=== PATIENT | female | born 1970 | race Caucasian/White ===

== ENCOUNTER → 2016-08-29 | Outpatient (CLI) | payer OTHER | LOC: FIMAGING 07:34 | DX: Z12.31 Encounter for screening mammogram for malignant neoplasm of breast (principal) | CPT/HCPCS: G0202 ==

== ENCOUNTER 2016-08-31 21:16 | Emergency (ER) | payer OTHER ==
--- NOTE | 2016-08-31 21:45 | EDPHY ---
H & P Stated Complaint: manic episode Source: Patient Exam Limitations: No limitations - Personal History LMP (Females 10-55): Now Current Tetanus Diphtheria and Acellular Pertussis (TDAP): Yes Tetanus Vaccine Date: 2008 - Medical/Surgical History Hx Asthma: No Hx Chronic Respiratory Disease: No Hx Diabetes: No Hx Cardiac Disease: No Hx Renal Disease: No Hx Cirrhosis: No Hx Alcoholism: No Hx HIV/AIDS: No Hx Splenectomy or Spleen Trauma: No Other PMH: bipolar, graves disease, meloma, micro-discection, thyroidectomy - Family History Significant Family History: No pertinent family hx - Social History Smoking Status: Never smoked Alcohol Use: Sober Drug Use: None Time Seen by Provider: 08/31/16 21:36 HPI/ROS: CHIEF COMPLAINT: Bipolar HISTORY OF PRESENT ILLNESS: Patient is a 45 year healthy female with a history of bipolar who comes to the emergency department stating that she is anxious and extremely manic. She states that she has seen her therapist Dr. Plaza yesterday who prescribed her Valium. She took a dose this morning that seemed to help but she took it this afternoon and that did not do anything. She states that Pedro has worked well for her in the past but she is not currently on it. She is currently on lithium & Synthroid. She has had a lot of stress in her life recently and thinks that this has triggered a manic episode. She is not suicidal or homicidal. No recent drug or alcohol use. She is requesting to be admitted before she does something "stupid" like break up with her fiance. REVIEW OF SYSTEMS: Constitutional: denies: chills, fever, recent illness, recent injury EENTM: denies: blurred vision, double vision, nose congestion Respiratory: denies: cough, shortness of breath Cardiac: denies: chest pain, irregular heart rate, lightheadedness, palpitations Gastrointestinal/Abdominal: denies: abdominal pain, diarrhea, nausea, vomiting, blood streaked stools Genitourinary: denies: dysuria, frequency, hematuria, pain Musculoskeletal: denies: joint pain, muscle pain Skin: denies: lesions, rash, jaundice, bruising Neurological: denies: headache, numbness, paresthesia, tingling, dizziness, weakness Hematologic/Lymphatic: denies: blood clots, easy bleeding, easy bruising Immunologic/allergic: denies: HIV/AIDS, transplant EXAM: GENERAL: Well-appearing, well-nourished and in no acute distress. HEAD: Atraumatic, normocephalic. EYES: Pupils equal round and reactive to light, extraocular movements intact, sclera anicteric, conjunctiva are normal. ENT: TMs normal, nares patent, oropharynx clear without exudates. Moist mucous membranes. NECK: Normal range of motion, supple without lymphadenopathy or JVD. LUNGS: Breath sounds clear to auscultation bilaterally and equal. No wheezes rales or rhonchi. HEART: Regular rate and rhythm without murmurs, rubs or gallops. ABDOMEN: Soft, nontender, normoactive bowel sounds. No guarding, no rebound. No masses appreciated. BACK: No CVA tenderness, no spinal tenderness, step-offs or deformities EXTREMITIES: Normal range of motion, no pitting or edema. No clubbing or cyanosis. NEUROLOGICAL: Cranial nerves II through XII grossly intact. Normal speech, normal gait. 5/5 strength, normal movement in all extremities, normal sensation PSYCH: Rapid speaking, animated SKIN: Warm, dry, normal turgor, no visible rashes or lesions. (Kuldeep Oakes) Constitutional: Initial Vital Signs Temperature (C) 37.1 C 08/31/16 21:23 Heart Rate 105 H 08/31/16 21:23 Respiratory Rate 20 08/31/16 21:23 Blood Pressure 152/93 H 08/31/16 21:23 O2 Delivery Mode Room Air Allergies/Adverse Reactions: chlorpromazine HCl [From Thorazine] Allergy (Verified 08/31/16 21:22) cortisone Allergy (Verified 08/28/16 16:11) diphenhydramine HCl [From Benadryl] Allergy (Verified 08/28/16 16:11) haloperidol [From Haldol] Allergy (Verified 08/31/16 21:22) haloperidol lactate [From Haldol] Allergy (Verified 08/31/16 21:22) olanzapine [From Zyprexa] Allergy (Verified 08/31/16 21:23) GABBAGE Allergy (Uncoded 08/28/16 16:12) STEROIDS Allergy (Uncoded 08/28/16 16:12) Home Medications: Medication Instructions Recorded Diazepam [Valium 10 MG (*)] 10 mg PO BID PRN 08/28/16 Herbals/Supplements -Info Only 1 ea PO DAILY 08/28/16 Levothyroxine [Synthroid 100 mcg 100 mcg PO DAILY06 08/28/16 (*)] Liothyronine Sodium [Cytomel 25 12.5 mcg PO DAILY 08/28/16 mcg (*)] Silver Peak Carbonate [Silver Peak 300 mg PO BID 08/28/16 Carbonate Cap 300 mg (*)] Multivitamins [Multivitamin (*)] 1 each PO DAILY 08/28/16 Lincoln-3 Fatty Acids/Fish Oil [Fish 1 each PO DAILY 08/28/16 Oil 1,000 mg Capsule] Zolpidem Tartrate [Ambien 10 mg] 10 mg PO HS PRN 08/28/16 Ziprasidone HCl [Geodon 40MG (*)] 40 mg PO BID #10 cap 09/01/16 Medical Decision Making ED Course/Re-evaluation: 3:00 a.m.- The patient was seen by the mental health worker. We have decided that she is suitable for outpatient management. I will write her for a short course of Geodon. She will follow up tomorrow with the mental health nurse. She has information for this. (Candi Camacho) Patient has calmed down with Geodon and Ativan. She is awaiting mental health consultation. I suspect she will be eligible for discharge and outpatient follow-up. Care transferred to at 11:00 p.m.. (Kuldeep Oakes) Differential Diagnosis: Partial list of the Differential diagnosis considered include but were not limited to; bipolar, anxiety, stress reaction and although unlikely based on the history and physical exam, I also considered psychosis, infection, head injury. (Kuldeep Oakes) - Data Points Laboratory Results: Laboratory Results 09/01/16 00:10 09/01/16 00:10 Medications Given: Discontinued Medications Lorazepam (Ativan) 2 mg PO EDNOW ONE Stop: 08/31/16 22:10 Last Admin: 08/31/16 22:17 Dose: 2 mg Ziprasidone (Geodon) 40 mg PO BIDMEAL CHARLIE Stop: 02/28/17 07:59 Last Admin: 08/31/16 22:18 Dose: 40 mg Departure - Departure Disposition: Home, Routine, Self-Care Clinical Impression: Bipolar 1 disorder, manic, moderate Condition: Good Instructions: Bipolar Disorder (ED) Referrals: [facility] [Outside] - As per Instructions Prescriptions: Ziprasidone HCl [Geodon 40MG (*)] 40 mg PO BID #10 cap
[2016-08-31] MEDS ORDERED: LORazepam 1 MG TAB PO ONE (22:09)
[2016-08-31] MEDS ORDERED: LORazepam 1 MG TAB ONE (22:10)
[2016-09-01 00:20] LABS: % IMMATURE GRANULYOCYTES 0.4 % (0.0-1.1); ABSOLUTE IMMATURE GRANULOCYTES 0.04 10^3/uL (0.00-0.10); ADD DIFF? NO; ADD MORPH? NO; ADD SCAN? NO; ATYPICAL LYMPHOCYTE FLAG 10 (0-99); FRAGMENT RBC FLAG 0 (0-99); HEMATOCRIT 41.9 % (38.0-47.0); HEMOGLOBIN 13.8 g/dL (12.6-16.3); LEFT SHIFT FLG 0 (0-99); LIPEMIA HEMOLYSIS FLAG 80 (0-99); MEAN CELL HEMOGLOBIN 30.8 pg (27.9-34.1); MEAN CELL HEMOGLOBIN CONCENTR. 32.9 g/dL (32.4-36.7); MEAN CELL VOLUME 93.5 fL (81.5-99.8); MEAN PLATELET VOLUME 9.2 fL (8.7-11.7); PLATELET CLUMPS FLAG 0 (0-99); PLATELET COUNT 274 10^3/uL (150-400); RED BLOOD CELL COUNT 4.48 10^6/uL (4.18-5.33)
[2016-09-01 00:48] LABS: ANION GAP 12 mEq/L (8-16); CALCIUM 9.9 mg/dL (8.5-10.4); CARBON DIOXIDE 24 mEq/l (22-31); CHLORIDE 104 mEq/L (97-110); CREATININE 0.7 mg/dL (0.6-1.0); ETHANOL SERUM < 10 mg/dL (0-10); GLOMERULAR FILTRATION RATE > 60; GLUCOSE 97 mg/dL (70-100); POTASSIUM 4.1 mEq/L (3.5-5.2); SODIUM 140 mEq/L (134-144)
[2016-09-01 01:00] LABS: LITHIUM 0.3 mEq/L (0.6-1.2)
[2016-09-01 03:36] VITALS: BP 144/87; PULSE 84; RESP 16; TEMP 98.6; O2SAT 97
[2016-09-01] MEDS ORDERED: ZIPRASIDONE HCL 40 MG CAP PO SCH (08:00)
== END 2016-09-01 03:38 | disposition home or self-care (01) ==
LOC: EEVIPCON 21:16
DX: F31.12 Bipolar disorder, current episode manic without psychotic features, moderate (principal)
CPT/HCPCS: 80305; G0480

== ENCOUNTER 2016-09-17 06:01 | Observation (INO) | payer OTHER ==
--- NOTE | 2016-09-05 14:52 | GHP ---
PLANNED PROCEDURE: Total laparoscopic hysterectomy with bilateral salpingectomy. INDICATIONS: Menorrhagia. HISTORY OF PRESENT ILLNESS: Patient is a 45-year-old, 4, para 1-0-3-1, who has had progress ively worsening periods over the last year and a half. Patient states her periods are monthly, she bleeds 5 to 7 days. The 1st day is okay and day 2 to 3 she has heavy clots. She has to sleep on to wels and she goes through super plus tampons every hour, plus pads, for 2 days. Day 4 and 5 are lig hter. The patient has a history of bipolar disorder, and does not do well on hormones, and is not i nterested in any medical management. Her family status is complete so she would like to have defini tive therapy with a hysterectomy. Risks and benefits of the procedure extensively reviewed with the patient. We had an extensive disc ussion about options of total laparoscopic hysterectomy versus total abdominal hysterectomy. We guillermo l start with a total laparoscopic hysterectomy, and patient is aware we might need to convert to abd ominal hysterectomy if any issues arise. MEDICAL HISTORY: Significant for hypothyroidism secondary to thyroid ablation for Grave disease, bi polar disorder, history of melanoma, cervical dysplasia, menorrhagia. MEDICATIONS: [place] 3 mg b.i.d., Valium 10 mg p.r.n., Ativan p.r.n., Geodon, Ambien p.r.n., levoth yroxine 100 mcg a day, Cytomel 12.5 mcg a day and omega-3. SURGICAL HISTORY: LEEP excision of her cervix versus possible cryosurgery, patient is not certain, primary low transverse section, back surgery, microdiskectomy of L4, L5, and S1, excision o f melanoma, thyroid ablation with iodine. ALLERGIES: No known drug allergies. SOCIAL HISTORY: The patient is engaged. She does not smoke or use drugs. She does drink 3 alcohol ic beverages a week. FAMILY HISTORY: Noncontributory. MEDIA CLERK HISTORY: Menarche age 13, monthly, lasting 5 to 7 days, they are very heavy, and she has lot s of clots and cramps. She is a 4, para 1-0-3-1. She had a primary low transverse section for breech presentation and 3 spontaneous abortions. Patient does have a history of cervic al dysplasia and has had a LEEP excision versus cryosurgery in 1997. Repeat Paps have all been nega tive. PHYSICAL EXAM: VITAL SIGNS: Patient's vital signs are stable. GENERAL APPEARANCE: Alert and orie nted x3. HEART: Regularly regular. LUNGS: Clear to auscultation bilaterally. ABDOMEN: Soft, ob karlie, nondistended, nontender. EXTREMITIES: Reveal no calf tenderness or edema. PELVIC: Reveals a mobile midposition uterus with no adnexal masses. Pelvic ultrasound shows the uterus measuring 8.1 2 x 5.37 x 4.5 cm with an endometrial thickness of 1 cm. Ovaries are unremarkable. ASSESSMENT AND PLAN: A 45-year-old 4, para 1-0-3-1, who has a history of menorrhagia and is not a candidate for medical therapy due to interactions with her bipolar disorder. The patient guillermo l undergo a total laparoscopic hysterectomy with bilateral salpingectomy. Risks and benefits have b eeartur extensively reviewed with the patient, including risks of bleeding, infection, damage to the bow el, bladder, or major blood vessels, risk of poking a hole in her bladder, which is increased becaus e of her history of her previous section, and need to convert to an open hysterectomy has b eeartur discussed extensively. /[id number]/MODL
[~2016-09-17 06:01] MED LIST: ceFAZolin 2 GM/DEXTROSE 100 ML IV ONE
[2016-09-17] MEDS ORDERED: DEXAMETHASONE 4 MG/ML VIAL ONE (06:40)
[2016-09-17] MEDS ORDERED: NEOSTIGMINE METHYLSULFATE 5 MG/5 ML SYR ONE (06:40)
[2016-09-17] MEDS ORDERED: ONDANSETRON 4 MG/2 ML VIAL ONE (06:40)
[2016-09-17] MEDS ORDERED: GLYCOPYRROLATE 0.2 MG/1 ML VIAL ONE (06:40)
[2016-09-17] MEDS ORDERED: ROCURONIUM 50 MG/5 ML VIAL ONE ×3 (06:40→07:37)
[2016-09-17] MEDS ORDERED: HYDROmorphONE/DILAUDID 2 MG/ML INJ ONE (06:40)
[2016-09-17] MEDS ORDERED: PROPOFOL/EMULSION 500 MG/50 ML BOTTLE IV ONE ×2 (06:41→07:42)
[2016-09-17] MEDS ORDERED: MIDAZOLAM 2 MG/2 ML VIAL ONE (06:41)
[2016-09-17] MEDS ORDERED: PROPOFOL 200 MG/20 ML VIAL ONE (06:41)
[2016-09-17] MEDS ORDERED: METOCLOPRAMIDE 10 MG/2 ML VIAL ONE (06:43)
[2016-09-17] MEDS ORDERED: LIDOCAINE 1% 5 ML SDV ID PRN (06:44)
[2016-09-17] MEDS ORDERED: LR 1,000 ML IV ONE (06:44)
[2016-09-17] MEDS ORDERED: SILVER NITRATE APPLICATOR 1 APPL TP ONE ×2 (06:47→06:50)
[2016-09-17] MEDS ORDERED: BUPIVACAINE/EPI 0.5% 30 ML SDV ONE (06:47)
[2016-09-17] MEDS ORDERED: LIDOCAINE 2% 100 MG/5 ML SYR IVP ONE (06:48)
[2016-09-17] MEDS ORDERED: ESMOLOL HCL 100 MG/10 ML VIAL IV ONE (07:39)
[2016-09-17] MEDS ORDERED: fentaNYL 250 MCG/5 ML INJ ONE (07:43)
[2016-09-17] MEDS ORDERED: KETOROLAC 30 MG/1 ML SDV ONE (09:19)
[2016-09-17] MEDS ORDERED: ACETAMINOPHEN 325 MG TAB PO PRN (09:46)
[2016-09-17] MEDS ORDERED: IBUPROFEN 200 MG TAB PO PRN (09:46)
[2016-09-17] MEDS ORDERED: HYDROmorphONE/DILAUDID 1 MG/ML SYR IVP PRN (09:46)
[2016-09-17] MEDS ORDERED: LORazepam 1 MG TAB PO PRN (09:52)
--- NOTE | 2016-09-17 09:57 | POSTOPPROG ---
Post Op Note Date of Operation: 09/17/16 Surgeon: Cecily Younger Chicken Hanger: jaclyn smith Anesthesia: GET(General Endotracheal) Pre-op Diagnosis: menorrhagia Post-op Diagnosis: same Procedure: total laparoscopic hysterectomy with bilateral salpingectomy Inf/Abcess present in the surg proc area at time of surgery?: No EBL: 50-100 Complications: none Specimen(s): uterus and tubes
[2016-09-17] MEDS ORDERED: LR 1,000 ML IV SCH (10:00)
--- NOTE | 2016-09-17 11:20 | GOP ---
DATE OF OPERATION: 09/17/2016 SURGEON: Cecily Younger DO CALCULUS PROFESSOR: Lucie Hollins MD ANESTHESIA: General endotracheal tube. PREOPERATIVE DIAGNOSIS: Menorrhagia. POSTOPERATIVE DIAGNOSIS: Menorrhagia. PROCEDURE PERFORMED: Total laparoscopic hysterectomy with bilateral salpingectomy. FINDINGS: 1. Exam under anesthesia: Mobile, slightly enlarged uterus with no adnexal masses. 2. Laparoscopic findings: Adhesions of the bladder to the lower uterine segment and otherwise unremarkable uterus. Normal right ovaries and tubes. Left ovary had a simple ovarian cyst which ruptured intraoperatively. ESTIMATED BLOOD LOSS: 50 cc. INDICATIONS: Patient is a 45-year-old, 4, para 1-0-3-1, who has a history of progressively worsening periods over the last year and a half. The patient states her periods are monthly. She bleeds 5-7 days. The first day is okay; the 2nd and 3rd day she passes heavy clots and has significant cramps and has to sleep on towels. She goes through a super plus tampon every hour plus pads for 2 days on day 4 and 5 or later. We have discussed management options with the patient. She is requesting definitive therapy with a total laparoscopic hysterectomy. Risks and benefits of the procedure were reviewed extensively with the patient. The patient was properly consented. DESCRIPTION OF PROCEDURE: Patient was taken to the operating room with intravenous fluids in place. She was given Ancef intravenously. She was then placed on the operating room table in the dorsal supine position where general anesthesia was obtained. She was then repositioned into the dorsal lithotomy position with the Yellofin stirrups and prepped and draped in the normal sterile fashion. Exam under anesthesia revealed a mobile mid position, slightly enlarged uterus with no adnexal masses. The speculum was then placed in the patient's vagina. A single-tooth tenaculum was used to grasp the anterior lip of the cervix, and the cervix sounded to 10 cm. The cervix was then dilated to a 7-Albanian. The green tip MARCELLO with a large cup was then assembled and inserted without difficulty. This manipulated the uterus. A 5 mm skin incision was then made in the umbilicus after being injected with Marcaine. The 5 mm laparoscope was advanced into the patient's abdomen under direct visualization with the Optiview. The abdomen was then insufflated with CO2 gas until an adequate pneumoperitoneum was achieved. The area underneath the trocar insertion site was explored and unremarkable. A 10 mm skin incision was then made in the patient's left lower quadrant and a trocar was then advanced into the abdomen under direct visualization, and a 5 mm trocar was then advanced into the patient's abdomen under direct visualization after a 5 mm skin incision was made. The patient was then placed in Trendelenburg position and the abdomen and pelvis were explored. There was a left simple cyst on her left ovary which ruptured with manipulation of the uterus. Prior to us removing the fallopian tubes at the beginning of the surgery, the ureters were identified bilaterally and noted to be peristalsing and well away from the surgical site. The right fallopian tube was then dissected off the mesosalpinx and withdrawn through the 10 mm trocar. The right round ligament was clamped, cauterized, and transected with the LigaSure, and the anterior and posterior segment of the broad ligament was then dissected down. The right uterine artery was then skeletonized, clamped, cauterized, and transected. The bladder was noted to be adherent to the lower uterine segment. This was carefully dissected down off the lower uterine segment. The colpotomy cup was clearly visualized. Attention was then turned to the patient's left side. The left fallopian tube was then elevated and transected from the mesosalpinx and withdrawn through the 10 mm port. The left round ligament and utero-ovarian ligament were clamped, cauterized, and transected. The anterior and posterior leaflets were then clamped, cauterized and transected, and the left uterine arteries were then clamped, cauterized, and transected. After the bladder was ensured to be well away from the colpotomy site, a Harmonic Scalpel was then used to perform the colpotomy. This was done without difficulty with excellent visualization throughout the entire time. Following completion of the colpotomy, the uterus was then withdrawn into the vagina and a sponge on a stick was then placed in the patient's vagina to assist with pneumo occlusion. Hemostasis of the vaginal cuff was noted. The V-Loc suture was then inserted through the 10 mm trocar site and the vaginal cuff was closed in a running fashion with the V- Loc. Bilateral angles and uterosacral ligaments were incorporated into the V- Loc suture. Hemostasis was assured following completion of the closure of the vaginal cuff. The abdomen and pelvis were copiously irrigated and the pedicles were evaluated, and the vaginal cuff was found to be hemostatic. Bilateral ureteral peristalsis was noted. The upper abdomen was explored and unremarkable. The area of the appendix was visualized and unremarkable. The 10 mm trocar was then removed from the patient's abdomen and the fascial closure device was then inserted. The fascia was closed with an 0 Vicryl stitch under direct visualization. The CO2 gas was then expressed from the patient's abdomen, and the remaining trocars were removed from the patient's abdomen. The skin was then closed with 4-0 Monocryl in a subcuticular fashion. Hemostasis was assured on the abdominal incisions. A sponge on a stick was then placed in the patient's vagina gently and a speculum exam was performed and no vaginal bleeding was noted. The patient was then returned to the dorsal supine position where she was easily awoken from anesthesia. Sponge, lap, needle counts were correct x2. The patient was transported to the recovery room in stable condition. /[id number]/MODL MTDD
[2016-09-17] MEDS: KETOROLAC 30 MG/1 ML SDV IVP SCH ×2 (12:58→19:24)
[2016-09-17] MEDS: HYDROCODONE/APAP 5/325 TAB PO PRN ×3 (12:59→20:51)
[2016-09-17] MEDS: LITHIUM CARBONATE 300 MG CAP PO SCH ×2 (13:12→20:42)
--- NOTE | 2016-09-17 17:28 | SOAPPROG ---
SOAP Progress Note Assessment/Plan: Assessment: pod#0 s/p TLH BS for menorrhagia uncomplicated post operative course bipolar disorder - currently in manic phase Plan: routine post operative care 09/17/16 17:24 Subjective: patient is doing well. ellison was removed earlier today. ambulating. passing gas. voiding without difficulty. pain is well controlled. tolerating diet. long discussion about discharge plan. per patient her insurance said she could stay as long as she wants to. and she wants to stay for a while because of the tory. Denies thoughts of hurting herself. discussed that if she is having mental health issues we can arrange a follow up plan with her psychiatrist but med/surg, mom/baby floor is not an appropriate place for terminal supervisor management of mood. Also doesnt want to go home because her fiance is busy. discussed that we will discussed plan tomorrow. patient to continue to ambulate. Objective: Vital Signs Temp Pulse Resp BP Pulse Ox 36.6 C 71 16 142/89 H 96 09/17/16 14:03 09/17/16 14:03 09/17/16 14:03 09/17/16 14:03 09/17/16 14:03 09/16/16 09/17/16 09/18/16 05:59 05:59 05:59 Intake Total 1350 Output Total 275 Balance 1075 Physical Exam - Physical Exam General Appearance: WD/WN, alert, no apparent distress Respiratory: chest non-tender, lungs clear Cardiac/Chest: normal peripheral pulses, regular rate, rhythm Abdomen: normal bowel sounds, non-tender, soft Skin: normal color, warm/dry, other (incisions covered) Extremities: normal range of motion, non-tender, normal inspection, normal capillary refill Neuro/Psych: no motor/sensory deficits, alert, normal mood/affect (slightly manic), oriented x 3 ICD10 Worksheet Patient Problems: Problems Problem Status Onset Menorrhagia Acute Status post laparoscopic hysterectomy Acute Bipolar disorder Active Hypothyroidism Active Low back pain Active
[2016-09-17] MEDS ORDERED: ZIPRASIDONE HCL 40 MG CAP PO SCH (21:00)
[2016-09-18] MEDS: KETOROLAC 30 MG/1 ML SDV IVP SCH ×3 (01:07→15:55)
[2016-09-18] MEDS: HYDROCODONE/APAP 5/325 TAB PO PRN ×2 (01:08→08:18)
[2016-09-18] MEDS ORDERED: LEVOTHYROXINE 112 MCG TAB PO SCH (06:00)
[2016-09-18 06:41] VITALS: RESP 18
[2016-09-18] MEDS: LIOTHYRONINE SODIUM 25 MCG TAB PO SCH ×2 (06:49→08:51)
[2016-09-18] MEDS: LITHIUM CARBONATE 300 MG CAP PO SCH (08:05)
--- NOTE | 2016-09-18 09:47 | SOAPPROG ---
SOAP Progress Note Assessment/Plan: Assessment: pod#1 s/p TLH BS for menorrhagia uncomplicated post operative course bipolar disorder - currently in manic phase Plan: routine post operative care discharge plan reviewed check tsh per patient request 09/18/16 09:43 Subjective: patient is doing well. pain is well controlled. denies vaginal bleeding. ambulating. passing gas. voiding without difficulty. tolerating regular diet. long discussion with patient about discharge plans. from a surgical perspective patient is fine to go home. patient is very anxious about her thyroid and tory and frustrated with the whole medical field/insurance situation and feels like she should be able to stay in patient until all issues have resolved. I do have patients psychiatrists number. i will call her today to discuss post operative management and options. discussed if patient needs in patient psych we can faciliate that. patient doesnt think she does but just feels overwhelmed. denies thoughts of hurting herself or others. just doesnt want to overwhelm her fiance as he is very busy. Objective: Vital Signs Temp Pulse Resp BP Pulse Ox 36.6 C 80 18 108/67 94 09/18/16 06:40 09/18/16 06:40 09/18/16 06:40 09/18/16 06:40 09/18/16 06:40 Laboratory Results 09/18/16 06:55 09/17/16 09/18/16 09/19/16 05:59 05:59 05:59 Intake Total 2150 Output Total 925 Balance 1225 Physical Exam - Physical Exam General Appearance: WD/WN, alert, no apparent distress Respiratory: chest non-tender, lungs clear, normal breath sounds Cardiac/Chest: normal peripheral pulses, regular rate, rhythm Abdomen: normal bowel sounds, non-tender, soft Skin: normal color, warm/dry, other (incisions covered ) Extremities: normal range of motion, non-tender, normal inspection, normal capillary refill Neuro/Psych: no motor/sensory deficits, alert, normal mood/affect, oriented x 3 ICD10 Worksheet Patient Problems: Problems Problem Status Onset Menorrhagia Acute Status post laparoscopic hysterectomy Acute Bipolar disorder Active Hypothyroidism Active Low back pain Active
[2016-09-18 10:40] VITALS: BP 108/73; PULSE 65; TEMP 98.1; O2SAT 96
[2016-09-18] MEDS ORDERED: LITHIUM CARBONATE 300 MG TAB PO ONE ×2 (15:20→16:00)
== END 2016-09-18 18:10 | disposition home or self-care (01) ==
LOC: F3E 06:01 → FOB 11:04
PROVIDERS: ADMIT Obstetrics & Gynecology; ATTEND Obstetrics & Gynecology
DX: N92.0 Excessive and frequent menstruation with regular cycle (principal); F31.10 Bipolar disorder, current episode manic without psychotic features, unspecified; E03.1 Congenital hypothyroidism without goiter; E89.0 Postprocedural hypothyroidism
CPT/HCPCS: 58571; G0378; J0690; J1100; J1170; J1885; J2001; J2250; J2405; J2704; J2710; J2765; J3010

== ENCOUNTER 2018-04-12 00:25 | Emergency (ER) | payer BC, MEDICAID ==
--- NOTE | 2018-04-12 00:32 | EDPHY ---
H & P Time Seen by Provider: 04/12/18 00:32 HPI/ROS: HPI CHIEF COMPLAINT: Back pain HISTORY OF PRESENT ILLNESS: 47-year-old female, history of bipolar disorder, presents emergency room with right gluteal pain. Sharp stabbing pain that shoots down to her ankle. She has been suffering from this pain for few weeks however last 48 hr it got worse. Denies any fever. Denies saddle anesthesia. Denies bowel or bladder incontinence or retention. Denies abdominal pain. She has had sciatica type symptoms in the past. She did have a micro diskectomy. Past Medical History: Bipolar disorder, history of sciatica Past Surgical History: Micro diskectomy. Social History: Denies drugs alcohol tobacco. Family History: Noncontributory ROS REVIEW OF SYSTEMS: 10 Systems were reviewed and negative with the exception of the elements mentioned in the history of present illness. Exam Constitutional nontoxic, no acute distress, triage nursing summary reviewed, vital signs reviewed, awake/alert. Eyes normal conjunctivae and sclera, EOMI, PERRLA. HENT normal inspection, atraumatic, moist mucus membranes, no epistaxis, neck supple/ no meningismus, no raccoon eyes. Respiratory clear to auscultation bilaterally, normal breath sounds, no respiratory distress, no wheezing. Cardiovascular rate normal, regular rhythm, no murmur, no edema, distal pulses normal. Gastrointestinal soft, non-tender, no rebound, no guarding, normal bowel sounds, no distension, no pulsatile mass. Genitourinary no CVA tenderness. Musculoskeletal no midline vertebral tenderness, full range of motion, no calf swelling, no tenderness of extremities, no meningismus, good pulses, neurovascularly intact. Right leg neurovascular intact good distal pulse, good cap refill, normal gait. Able to lift her leg off the bed fine. No leg weakness. No saddle anesthesia. No midline lumbar spine pain. Skin pink, warm, & dry, no rash, skin atraumatic. Neurologic awake, alert and oriented x 3, AAOx3, moves all 4 extremities equally, motor intact, sensory intact, CN II-XII intact, normal cerebellar, normal vision, normal speech. Psychiatric normal mood/affect. Heme/Lymph/Immune no lymphadenopathy. Differential Diagnosis: Includes but is not limited to in a particular order: Sciatica, nerve root compression, annular tear, disc herniation, compression fracture, no evidence of cauda equina on exam, Medical Decision Making: Plan for this patient IV establishment basic blood draw, UA, lumbar spine x-ray, IV Dilaudid for pain control, IV Toradol for pain control. Re-evaluate. Patient declined steroids here. Has multiple medication allergies. Re-evaluation: 0416: Patient received 0.5 IV Dilaudid initially with good pain relief. Her pain returned and she received 1 mg of Dilaudid. Since then she has been doing very well. She ambulated well to the bathroom her back pain is well controlled. She has no red flags no fever, no midline pain, no saddle anesthesia or leg weakness. At times the pain radiates down her right gluteus to right ankle consistent with sciatica. She declined steroids here. She declined [place] for home. She rather her Percocet which I provided for her. I do distally recommend she ice her back, takes ibuprofen, follows up with her primary care doctor versus neurosurgeon. She understands this. Additionally return precautions discussed. She feels comfortable going home. I did discuss with her about observation and admission overnight for pain control however she has declined this and feels comfortable going home. Source: Patient - Personal History Tetanus Vaccine Date: 2008 - Medical/Surgical History Hx Asthma: No Hx Chronic Respiratory Disease: No Hx Diabetes: No Hx Cardiac Disease: No Hx Renal Disease: No Hx Cirrhosis: No Hx Alcoholism: No Hx HIV/AIDS: No Hx Splenectomy or Spleen Trauma: No Other PMH: bipolar, graves disease, meloma, micro-discection, thyroidectomy - Social History Smoking Status: Never smoked Constitutional: Initial Vital Signs Temperature (C) 36.6 C 04/12/18 00:31 Heart Rate 108 H 04/12/18 00:31 Respiratory Rate 20 04/12/18 00:31 Blood Pressure 139/92 H 04/12/18 00:31 O2 Sat (%) 94 04/12/18 00:31 O2 Delivery Mode Room Air Allergies/Adverse Reactions: chlorpromazine HCl [From Thorazine] Allergy (Verified 04/12/18 00:30) cortisone Allergy (Verified 04/12/18 00:30) diphenhydramine HCl [From Benadryl] Allergy (Verified 04/12/18 00:30) haloperidol [From Haldol] Allergy (Verified 04/12/18 00:30) haloperidol lactate [From Haldol] Allergy (Verified 04/12/18 00:30) olanzapine [From Zyprexa] Allergy (Verified 04/12/18 00:30) GABBAGE Allergy (Uncoded 04/12/18 00:30) STEROIDS Allergy (Uncoded 04/12/18 00:30) Home Medications: Medication Instructions Recorded Herbals/Supplements -Info Only 1 ea PO DAILY 08/28/16 Liothyronine Sodium [Cytomel 25 12.5 mcg PO DAILY 08/28/16 mcg (*)] [place] Carbonate [[place] 300 mg PO BID 08/28/16 Carbonate Cap 300 mg (*)] Multivitamins [Multivitamin (*)] 1 each PO DAILY 08/28/16 [place]-3 Fatty Acids/Fish Oil [Fish 1 each PO DAILY 08/28/16 Oil 1,000 mg Capsule] Zolpidem Tartrate [Ambien 10 mg] 10 mg PO HS PRN 08/28/16 LORazepam [Ativan (*)] 1 mg PO DAILY PRN 09/16/16 Levothyroxine Sodium 112 mcg PO DAILY06 09/16/16 Hydrocodone/APAP 5/325 [[place] 1 - 2 tab PO Q4HRS PRN #30 tab 09/18/16 5/325 (*)] Ibuprofen [Motrin (*)] 600 mg PO Q6 PRN #0 tab 09/18/16 Hydrocodone/APAP 5/325 [[place] 1 - 2 tab PO Q4H PRN #10 tab 04/12/18 5/325] oxyCODONE/APAP 5/325 [Percocet 1 - 2 tab PO Q6H PRN #10 tab 04/12/18 5/325 (*)] Medical Decision Making - Data Points Laboratory Results: Laboratory Results 04/12/18 01:05 04/12/18 01:05 04/12/18 04/12/18 04/12/18 01:05 01:05 01:05 WBC 8.58 10^3/uL 10^3/uL (3.80-9.50) RBC 4.92 10^6/uL 10^6/uL (4.18-5.33) Hgb 15.3 g/dL g/dL (12.6-16.3) Hct 44.4 % % (38.0-47.0) MCV 90.2 fL fL (81.5-99.8) MCH 31.1 pg pg (27.9-34.1) MCHC 34.5 g/dL g/dL (32.4-36.7) RDW 12.7 % % (11.5-15.2) Plt Count 249 10^3/uL 10^3/uL (150-400) MPV 9.1 fL fL (8.7-11.7) Neut % (Auto) 58.1 % % (39.3-74.2) Lymph % (Auto) 31.6 % % (15.0-45.0) [place] % (Auto) 7.3 % % (4.5-13.0) Eos % (Auto) 2.4 % % (0.6-7.6) Baso % (Auto) 0.3 % % (0.3-1.7) Nucleat RBC Rel Count 0.0 % % (0.0-0.2) Absolute Neuts (auto) 4.97 10^3/uL 10^3/uL (1.70-6.50) Absolute Lymphs (auto) 2.71 10^3/uL 10^3/uL (1.00-3.00) Absolute Monos (auto) 0.63 10^3/uL 10^3/uL (0.30-0.80) Absolute Eos (auto) 0.21 10^3/uL 10^3/uL (0.03-0.40) Absolute Basos (auto) 0.03 10^3/uL 10^3/uL (0.02-0.10) Absolute Nucleated RBC 0.00 10^3/uL 10^3/uL (0-0.01) Immature Gran % 0.3 % % (0.0-1.1) Immature Gran # 0.03 10^3/uL 10^3/uL (0.00-0.10) Sodium 141 mEq/L mEq/L (135-145) Potassium 3.9 mEq/L mEq/L (3.3-5.0) Chloride 108 mEq/L mEq/L (97-110) Carbon Dioxide 24 mEq/l mEq/l (22-31) Anion Gap 9 mEq/L mEq/L (8-16) BUN 16 mg/dL mg/dL (7-23) Creatinine 0.6 mg/dL mg/dL (0.6-1.0) Estimated GFR > 60 Glucose 114 mg/dL H mg/dL (70-100) Calcium 9.4 mg/dL mg/dL (8.5-10.4) Beta HCG, Qual NEGATIVE Medications Given: Discontinued Medications Hydromorphone HCl (Dilaudid) 0.5 mg IVP EDNOW ONE Stop: 04/12/18 01:00 Last Admin: 04/12/18 01:20 Dose: 0.5 mg Hydromorphone HCl (Dilaudid) 1 mg IVP EDNOW ONE Stop: 04/12/18 03:21 Last Admin: 04/12/18 03:24 Dose: 1 mg Sodium Chloride (Ns) 1,000 mls @ 0 mls/hr IV EDNOW ONE; Wide Open PRN Reason: Protocol Stop: 04/12/18 00:59 Last Admin: 04/12/18 01:19 Dose: 1,000 mls Sodium Chloride (Ns) 1,000 mls @ 0 mls/hr IV ONCE ONE PRN Reason: Wide Open Stop: 04/12/18 02:14 Last Admin: 04/12/18 02:15 Dose: 1,000 mls Sodium Chloride (Ns) 1,000 mls @ 0 mls/hr IV EDNOW ONE; Wide Open PRN Reason: Protocol Stop: 04/12/18 02:14 Last Admin: 04/12/18 02:16 Dose: Not Given Ketorolac Tromethamine (Toradol) 15 mg IVP EDNOW ONE Stop: 04/12/18 01:00 Last Admin: 04/12/18 01:18 Dose: 15 mg Departure - Departure Disposition: Home, Routine, Self-Care Clinical Impression: Low back pain Sciatica Qualifiers: Laterality: right Qualified Code(s): M54.31 - Sciatica, right side Condition: Good Instructions: Sciatica (ED), Lumbar Radiculopathy (ED) Additional Instructions: 1. Rest and take it easy. 2. Ice you're back. 3. Follow up with her primary care doctor. Referrals: NONE *PRIMARY CARE P,. [Primary Care Provider] - As per Instructions Roe Rehman MD [Medical Doctor] - As per Instructions Jose Angel Simpson MD [Medical Doctor] - As per Instructions Prescriptions: Hydrocodone/APAP 5/325 [[place] 5/325] 1 - 2 tab PO Q4H PRN #10 tab PRN Reason: Pain, Moderate oxyCODONE/APAP 5/325 [Percocet 5/325 (*)] 1 - 2 tab PO Q6H PRN #10 tab PRN Reason: Pain, Severe
[2018-04-12] MEDS ORDERED: NS 1,000 ML IV ONE ×3 (00:58→02:13)
[2018-04-12] MEDS ORDERED: KETOROLAC 15 MG/1 ML SDV IVP ONE (00:59)
[2018-04-12] MEDS ORDERED: HYDROmorphONE/DILAUDID 2 MG/ML INJ IVP ONE ×2 (00:59→03:20)
[2018-04-12 01:16] LABS: PLATELET COUNT 249 10^3/uL (150-400)
[2018-04-12] MEDS ORDERED: HYDROmorphONE/DILAUDID 1 MG/ML INJ ONE (03:21)
[2018-04-12 03:27] VITALS: BP 115/68
== END 2018-04-12 04:29 | disposition home or self-care (01) ==
DX: M51.16 Intervertebral disc disorders with radiculopathy, lumbar region (principal); E86.9 Volume depletion, unspecified
CPT/HCPCS: 96374; J1170; J1885

== ENCOUNTER 2018-11-18 10:10 | Inpatient (IN) | payer OTHER ==
--- NOTE | 2018-11-18 10:54 | EDPHY ---
H & P Time Seen by Provider: 11/18/18 10:30 HPI/ROS: CHIEF COMPLAINT: Back pain and left leg numbness HISTORY OF PRESENT ILLNESS: Previous microdiskectomy, has been having worsening back pain and had an MRI last week on Friday and is scheduled for lumbar fusion with Dr. Arzate on December 14. She is using temperature therapy and Tylenol and Motrin but without improvement in her symptoms. Today the pain is severe. Specially left side of her back and down her left leg. The new symptom is that she also has numbness in her left foot along the lateral 3 toes which is a new symptom. Not associated with incontinence. Worse with movement. REVIEW OF SYSTEMS: Eye: no change in vision ENT: no sore throat Cardiac: no chest pain or syncope Pulmonary: no cough or SOB Abdomen: no vomiting, diarrhea, abdominal pain Musculoskeletal: HPI Skin: no rash Neuro: She does have some baseline right leg numbness from previous micro diskectomy in 2011 Constitutional: no fever : no urinary symptoms A comprehensive 10 point review of systems is otherwise negative aside from elements mentioned in the history of present illness. PAST MEDICAL HISTORY: Includes previous micro diskectomy, bipolar, Graves disease, thyroidectomy Social history: Here with a friend, nonsmoker General Appearance: Alert and conversant, cooperative. Eyes: No scleral icterus. ENT, Mouth: Normal mucous membranes. Respiratory: Normal respiratory effort, breath sounds equal, lungs are clear to auscultation. Cardiovascular: Regular rate and rhythm. Gastrointestinal: Abdomen is soft and non tender. Neurological: Alert, face symmetric, patellar reflexes 2+ right and 1+ left, toes downgoing bilaterally. She has decreased sensation to light touch on the lateral side of her lower leg and left foot which is new. Skin: Warm and dry, no rashes. Musculoskeletal: No peripheral edema. Psychiatric: Not agitated. Emergency Department course/MDM: Harriett 1054; nelly Arzate. Admit Neurosurgery, IV pain medication. Reason for admission is intractable back pain with new paresthesia on the left leg and known spinal abnormality on MRI scheduled for surgery on December 14. 1234: additional 1mg IV dilaudid for pain, neurosurgery with patient at this time. Smoking Status: Never smoked Constitutional: Initial Vital Signs Temperature (C) 37.3 C 11/18/18 10:15 Heart Rate 107 H 11/18/18 10:15 Respiratory Rate 16 11/18/18 10:15 Blood Pressure 155/103 H 11/18/18 10:15 O2 Sat (%) 98 11/18/18 10:15 O2 Delivery Mode Room Air Allergies/Adverse Reactions: chlorpromazine HCl [From Thorazine] Allergy (Verified 11/18/18 11:37) Other-Enter Comments diphenhydramine HCl [From Benadryl] Allergy (Verified 11/18/18 11:37) Other-Enter Comments haloperidol [From Haldol] Allergy (Verified 11/18/18 11:37) Other-Enter Comments STEROIDS Allergy (Uncoded 11/18/18 11:37) Other-Enter Comments Home Medications: Medication Instructions Recorded Herbals/Supplements -Info Only 1 ea PO DAILY 08/28/16 Liothyronine Sodium [Cytomel 25 12.5 mcg PO HS 08/28/16 mcg (*)] [place] Carbonate [[place] 600 mg PO DAILY 08/28/16 Carbonate Cap 300 mg (*)] Acetaminophen [Tylenol ES 500 mg 1,000 mg PO Q8HRS 11/18/18 (*)] Ibuprofen [Motrin (*)] 800 mg PO Q8HRS 11/18/18 Levothyroxine [Synthroid 100 mcg 100 mcg PO HS 11/18/18 (*)] Medical Decision Making Differential Diagnosis: Differential considered including but not limited to herniated disc, lumbar radiculopathy, spinal stenosis, epidural abscess, peripheral neuropathy. - Data Points Medications Given: Discontinued Medications Hydromorphone HCl (Dilaudid) 1 mg IVP EDNOW ONE Stop: 11/18/18 10:56 Last Admin: 11/18/18 11:09 Dose: 1 mg Ondansetron HCl (Zofran) 4 mg IVP EDNOW ONE Stop: 11/18/18 10:56 Last Admin: 11/18/18 11:06 Dose: 4 mg Departure - Departure Disposition: [facility] Clinical Impression: Lumbar radiculopathy Condition: Good
[2018-11-18] MEDS ORDERED: ONDANSETRON 4 MG/2 ML VIAL IVP ONE (10:55)
[2018-11-18] MEDS ORDERED: HYDROmorphONE/DILAUDID 2 MG/ML INJ IVP ONE ×2 (10:55→12:24)
[2018-11-18 11:11] LABS: PLATELET COUNT 244 10^3/uL (150-400)
[2018-11-18] MEDS ORDERED: ACETAMINOPHEN 325 MG TAB PO PRN (12:55)
[2018-11-18] MEDS ORDERED: ONDANSETRON 4 MG/2 ML VIAL IVP PRN (12:55)
[2018-11-18] MEDS ORDERED: ONDANSETRON DISINTEGRATING 4 MG TAB PO PRN (12:55)
[2018-11-18] MEDS ORDERED: OXYCODONE/APAP 5/325 TAB PO PRN (12:55)
--- NOTE | 2018-11-18 13:10 | GHP ---
[f rep st] HISTORY AND PHYSICAL DATE OF ADMISSION: 11/18/2018 CHIEF COMPLAINT: Low back pain and left leg pain. HISTORY OF PRESENT ILLNESS: Ms. Tadeo is a pleasant 48-year-old female, known to our practice from mary laureano undergoing a right-sided L5-S1 microdiskectomy with Dr. Rehman in 2011. She did wel l after that surgery, but states that over the past 2 years, she has had flare-ups of back and left l eg pain, most recently over the past 2-3 weeks, and as of last night, she developed severe left leg p ain with associated paresthesias in the posterior calf and weakness in her left foot. Her pain was s o severe, she presented to the emergency department where she is seen today by Dr. Rehman. Andi bolanos has been trying Tylenol and Motrin every 8 hours with partial relief of her pain. She denies any b owel or bladder incontinence. She has a history of bipolar disorder and cannot use any IV or oral st eroids due to this causing severe exacerbation of her bipolar disorder. Today, she reports 70% left leg pain and 30% back pain. Her symptoms are worse with walking and improved when she lays on the ri ght side. ALLERGIES: No known drug allergies. PAST MEDICAL HISTORY: 1. Bipolar. 2. Hypothyroid. 3. Chronic back pain. CURRENT MEDICATIONS: [place], Tylenol, Motrin, Cytomel, and levothyroxine. PAST SURGICAL HISTORY: 1. Right L5-S1 microdiskectomy [address] Rehman. 2. Thyroid radiation. 3. . 4. Hysterectomy in 2017. REVIEW OF SYSTEMS: CONSTITUTIONAL: Patient wears glasses. PSYCHOLOGICAL: Depression. MUSCULOSKEL ETAL: Low back pain and left leg pain. PHYSICAL EXAM: GENERAL: Pleasant, healthy-appearing 48-year-old year old female in moderate discomf ort. She is lying on her right side secondary to severe left leg pain. HEAD, EARS, NOSE, THROAT: W ithin normal limits. EXTREMITIES: Within normal limits. ABDOMEN: Soft and nondistended. NEUROLOGIC EXAM: Patient is awake, alert and oriented x4. Cranial nerves 2-12 are intact to neva bolanos xamination. Speech is fluent. Tongue is midline. Spinal accessory muscles are intact. She has equ al and symmetric strength of bilateral upper extremities. And the right lower extremity has 5/5 stre ngth throughout. Her left lower extremity demonstrates 4/5 strength in the left plantar flexor and d orsiflexor and EHL, which appears somewhat effort-dependent secondary to pain. Reflexes are 2+ out of 4 bilateral patellar tendons and 1+/4 bilateral biceps and brachioradialis. N egative Terry's. DATA REVIEW: Imaging studies: MRI of the lumbar spine from [facility] on 11/17/[address] Rehman and demonstrates postoperative changes consistent with a prior right L5-S1 micr odiskectomy and a new left sided L5-S1 disk herniation. IMPRESSIONS: A 48-year-old female with previous right-sided L5-S1 microdiskectomy in 2011 for right leg pain by Dr. Rehman. She did well after that procedure until approximately 2-3 years ago, when she began to have intermittent low back and left leg pain, which has severely flared up over the past 2-3 weeks, and most recently last night. Her pain radiates down the left lateral thigh, with a ssociated numbness in the posterior calf and weakness in her plantar flexor and dorsiflexor of the le ft foot and EHL. Her symptoms are likely related to her left-sided L5-S1 disk herniation, degenerati ve disk disease. She has moderate L4-5 disk degeneration as well, and her symptoms are likely relate d to her at L4-5, and L5-S1 degenerative disk disease with disk height collapse and bilateral left gr eater than right lateral recess stenosis secondary to ligamentous hypertrophy and a possible facet cy st. At L5-S1, there is a large central left paracentral disk herniation with contact to the bilatera l S1 nerve roots, and mild to moderate central canal stenosis. PLAN: All the above issues were discussed the patient in detail with Dr. Rehman present in [facility] [place] emergency department today. At this time, the patient will be admitted for pain control. We will plan on proceeding with an L4-5 and L5-S1 transfemoral lumbar interbody fusion Friday morning. The p rox is amenable and agreeable to this plan. /[id number]/MODL
--- NOTE | 2018-11-18 19:07 | PDMN ---
Medical Necessity Medical necessity: [facility] M63 Back Pain, A-1 day: 48 yo w/ back pain and severe left leg pain associated w/ paresthesias in the posterior calf and weakness in L foot likely r/t L5-S1 disk herniation and degernerative disk disease. Neurosurg consulted and pt will be admitted for pain control and lumbar fusion meeting [facility] IP status (Lumbar Fusions are IP only). Hx bipolar, R L5-S1 microdiskectomy 2011, hypothyroid, chronic back pain.
[2018-11-18] MEDS: METHOCARBAMOL 750 MG TAB PO PRN (20:35)
[2018-11-18] MEDS: LEVOTHYROXINE 100 MCG TAB PO SCH (22:08)
[2018-11-18] MEDS: LIOTHYRONINE SODIUM 25 MCG TAB PO SCH (22:08)
[2018-11-18] MEDS: oxyCODONE IR 5 MG TAB PO PRN (22:13)
[2018-11-19] MEDS: oxyCODONE IR 5 MG TAB PO PRN ×2 (02:22→11:32)
[2018-11-19] MEDS: METHOCARBAMOL 750 MG TAB PO PRN ×2 (02:22→11:33)
--- NOTE | 2018-11-19 08:17 | NEUSURGPN ---
Assessment/Plan: Assessment: 48 yr old female with low back pain, left leg pain Plan: -Plan for OR tomorrow am for L4-5, L5-S1 TLIF with Dr Arzate -Risks and benefits were discussed and consents signed -NPO at midnight -Pre op orders in Discussed patient with Dr Arzate Please call with questions/concerns Subjective: left leg pain Objective: AxOx4 MAEx4 5/5 BLE sensation intact to light touch BLE Neuro Check Frequency: per routine Urinary Catheter in Place: No - Physician Discussed Patient with : Ori Neurosurgery Physical Exam - Vitals, I&O, Labs I and O 11/18/18 11/19/18 11/20/18 05:59 05:59 05:59 Intake Total 775 Balance 775 Weight 89.811 kg Intake: Oral (ml) 775 IV Infused (ml) 0 Other: Intake Quantity Yes Sufficient Number of Voids Toilet 1 Vital Signs Temp Pulse Resp BP Pulse Ox 36.8 C 76 14 127/82 H 97 11/19/18 07:31 11/19/18 07:31 11/19/18 07:31 11/19/18 07:31 11/19/18 07:31 Laboratory Results 11/18/18 11:00 11/18/18 11:00 ICD10 Worksheet Patient Problems: Problems Problem Status Onset Lumbar radiculopathy Acute Bipolar disorder Active Hypothyroidism Active Menorrhagia Acute Status post laparoscopic hysterectomy Acute
[2018-11-19] MEDS ORDERED: ACETAMINOPHEN 500 MG TAB PO ONE (08:18)
[2018-11-19] MEDS ORDERED: ceFAZolin 2 GM/DEXTROSE 100 ML IV ONE (08:18)
[2018-11-19] MEDS ORDERED: GABAPENTIN 300 MG CAP PO ONE (08:18)
[2018-11-19] MEDS: PROMETHAZINE HCL 25 MG/ML INJ IV PRN ×2 (10:05→11:15)
[2018-11-19] MEDS: ACETAMINOPHEN 325 MG TAB PO PRN (11:33)
[2018-11-19] MEDS: LITHIUM CARBONATE 600 MG CAP PO SCH (11:34)
--- NOTE | 2018-11-19 11:38 | ASMTCMCOM ---
CM Note CM Note Notes: Pt came to [facility] ED with back pain and L leg numbness. Pt was originally scheduled to have surgery with Dr. Arzate in December, will have L4-5, L5-S1 TLIF tomorrow. Therapies have yet to be ordered. Pt resides with spouse. D/c plan of care: TBD therapies to eval after surgery Date Signed: 11/19/2018 11:37 AM Electronically Signed By:JENNIFER Eng
[2018-11-19] MEDS ORDERED: SCOPOLAMINE HYDROBROMIDE 1 MG/3 DAYS PATCH TD ONE (11:56)
[2018-11-19] MEDS: NS W/ 20 KCl/L 1,000 ML IV SCH (12:34)
[2018-11-19] MEDS ORDERED: METOCLOPRAMIDE 10 MG/2 ML VIAL IV PRN (16:42)
[2018-11-19] MEDS: LEVOTHYROXINE 100 MCG TAB PO SCH (21:39)
[2018-11-19] MEDS: LIOTHYRONINE SODIUM 25 MCG TAB PO SCH (21:40)
[2018-11-20] MEDS: NS W/ 20 KCl/L 1,000 ML IV SCH (03:27)
[2018-11-20] MEDS ORDERED: BACITRACIN 50,000 UNITS/10 ML SYR IRR ONE (06:49)
[2018-11-20] MEDS ORDERED: BUPIVACAINE 0.25% 30 ML SDV ONE (06:49)
[2018-11-20] MEDS ORDERED: BUPIVACAINE/EPI 0.25% 30 ML SDV ONE (06:49)
[2018-11-20] MEDS ORDERED: CHLORHEXIDINE GLUC HIBICLENS 118 ML BTL TP ONE (06:49)
--- NOTE | 2018-11-20 06:52 | PDHPUP ---
History & Physical Update H&P update statement: This history and physical update is based on an assessment of the patient which was completed after admission or registration (within 24 hours), but prior to the surgery/procedure. H&P update: no change in patient's condition since H&P completed
--- NOTE | 2018-11-20 06:58 | PDANEPAE ---
ANE History of Present Illness L4-S1 TLIF for severe lumbar stenosis and cord compromise ANE Past Medical History - Cardiovascular History Hx Hypertension: No Hx Arrhythmias: No Hx Chest Pain: No Hx Coronary Artery / Peripheral Vascular Disease: No Hx CHF / Valvular Disease: No Hx Palpitations: No Cardiovascular History Comment: VIRAL INFECTION DURING CHILDHOOD NO RESIDUAL ISSUES - Pulmonary History Hx COPD: No Hx Asthma/Reactive Airway Disease: No Hx Recent Upper Respiratory Infection: No Hx Oxygen in Use at Home: No Hx Sleep Apnea: No Sleep Apnea Screening Result - Last Documented: Negative - Neurologic History Hx Cerebrovascular Accident: No Hx Seizures: No Hx Dementia: No - Endocrine History Hx Diabetes: No Endocrine History Comment: GRAVES DX. THYROID RADIATION - Renal History Hx Renal Disorders: No - Liver History Hx Hepatic Disorders: No - Neurological & Psychiatric Hx Hx Neurological and Psychiatric Disorders: Yes Neurological / Psychiatric History Comment: BIPOLAR. ANXIETY - Cancer History Hx Cancer: Yes Cancer History Comment: SKIN - Congenital Disorder History Hx Congenital Disorders: No - GI History Hx Gastrointestinal Disorders: No - Other Health History Other Health History: ANEMIA. MENORRHAGIA - Chronic Pain History Chronic Pain: No - Surgical History Prior Surgeries: 2001. CHEMICAL IRIDATION OF THYROID. MICRODISCECTOMY 2011. SHENA. REMVL MELANOMA ON LT ARM ANE Review of Systems Review of Systems: ANE Patient History - Allergies Allergies/Adverse Reactions: chlorpromazine HCl [From Thorazine] Allergy (Verified 11/18/18 11:37) Other-Enter Comments diphenhydramine HCl [From Benadryl] Allergy (Verified 11/18/18 11:37) Other-Enter Comments haloperidol [From Haldol] Allergy (Verified 11/18/18 11:37) Other-Enter Comments STEROIDS Allergy (Uncoded 11/18/18 11:37) Other-Enter Comments - Home Medications Home Medications: Herbals/Supplements -Info Only 1 ea PO DAILY 08/28/16 [Last Taken 09/10/16] Liothyronine Sodium [Cytomel 25 mcg (*)] 12.5 mcg PO HS 08/28/16 [Last Taken 03/01 01:00] [place] Carbonate [[place] Carbonate Cap 300 mg (*)] 600 mg PO DAILY 08/28/16 [ Last Taken 09/17/16] Acetaminophen [Tylenol ES 500 mg (*)] 1,000 mg PO Q8HRS 11/18/18 [Last Taken Unknown] Ibuprofen [Motrin (*)] 800 mg PO Q8HRS 11/18/18 [Last Taken Unknown] Levothyroxine [Synthroid 100 mcg (*)] 100 mcg PO HS 11/18/18 [Last Taken 01:00] - NPO status NPO Since - Liquids (Date): 11/20/18 NPO Since - Liquids (Time): 00:00 NPO Since - Solids (Date): 11/20/18 NPO Since - Solids (Time): 00:00 - Smoking Hx Smoking Status: Never smoked ANE Labs/Vital Signs - Labs Result Diagrams: 11/18/18 11:00 11/18/18 11:00 - Vital Signs Blood Pressure: 120/65 Heart Rate: 75 Respiratory Rate: 17 O2 Sat (%): 95 Height: 177.8 cm Weight: 89.811 kg ANE Physical Exam - Airway Neck exam: FROM Mallampati Score: Class 2 Mouth exam: normal dental/mouth exam - Pulmonary Pulmonary: no respiratory distress, no rales or rhonchi - Cardiovascular Cardiovascular: regular rate and rhythym, no murmur, rub, or gallop - ASA Status ASA Status: III ANE Anesthesia Plan Anesthesia Plan: general endotracheal anesthesia Total IV Anesthesia: No
[2018-11-20] MEDS ORDERED: MIDAZOLAM 2 MG/2 ML VIAL IVP ONE (06:59)
[2018-11-20] MEDS ORDERED: LR 1,000 ML IV ONE (07:00)
[2018-11-20] MEDS ORDERED: TRANEXAMIC ACID 1,000 MG in NS 100 ML IV ONE (07:00)
[2018-11-20] MEDS ORDERED: REMIFENTANIL HCL 1 MG VIAL ONE ×3 (07:05→10:06)
[2018-11-20] MEDS ORDERED: LIDOCAINE 2% 100 MG/5 ML SYR ONE (07:05)
[2018-11-20] MEDS ORDERED: DEXAMETHASONE 4 MG/ML VIAL ONE (07:05)
[2018-11-20] MEDS ORDERED: PROPOFOL/EMULSION 500 MG/50 ML BOTTLE IV ONE ×5 (07:05→11:00)
[2018-11-20] MEDS ORDERED: PROPOFOL 200 MG/20 ML VIAL ONE ×2 (07:05→12:10)
[2018-11-20] MEDS ORDERED: SCOPOLAMINE HYDROBROMIDE 1 MG/3 DAYS PATCH TD ONE (07:08)
[2018-11-20] MEDS: SCOPOLAMINE HYDROBROMIDE 1 MG/3 DAYS PATCH TD SCH (07:10)
[2018-11-20] MEDS ORDERED: CITRATE DEXTROSE SOLN 500 ML BAG ONE (07:14)
[2018-11-20] MEDS ORDERED: fentaNYL 100 MCG/2 ML INJ ONE ×2 (07:23→11:28)
[2018-11-20] MEDS ORDERED: THROMBIN (BOVINE) 20,000 UNIT VIAL TP ONE (07:49)
[2018-11-20] MEDS ORDERED: fentaNYL 50 MCG in SYRINGE INTRATHECAL 1 SYR IT ONE (08:30)
[2018-11-20] MEDS ORDERED: morphINE PF 0.2 MG in SYRINGE INTRATHECAL 1 SYR IT ONE (08:30)
[2018-11-20] MEDS: LITHIUM CARBONATE 600 MG CAP PO SCH (10:24)
[2018-11-20] MEDS ORDERED: ceFAZolin 2 GM/DEXTROSE 100 ML IV ONE (10:30)
[2018-11-20] MEDS ORDERED: fentaNYL 100 MCG/2 ML INJ IVP PRN (10:32)
[2018-11-20] MEDS ORDERED: HYDROmorphONE/DILAUDID 1 MG/ML INJ IVP PRN (10:32)
[2018-11-20] MEDS ORDERED: oxyCODONE IR 5 MG TAB PO PRN (10:32)
[2018-11-20] MEDS ORDERED: NALOXONE HCL 0.4 MG/ML INJ IVP PRN (10:32)
[2018-11-20] MEDS ORDERED: LR 500 ML IV PRN (10:32)
[2018-11-20] MEDS ORDERED: DIAZEPAM 10 MG/2 ML SYR IVP PRN (10:32)
[2018-11-20] MEDS ORDERED: MEPERIDINE 25 MG/0.5 ML AMP IVP PRN (10:32)
[2018-11-20] MEDS ORDERED: HYDROmorphONE/DILAUDID 2 MG/ML INJ ONE ×2 (11:18→11:58)
[2018-11-20] MEDS ORDERED: morphINE PF 5 MG/10 ML INJ ONE (11:29)
[2018-11-20] MEDS ORDERED: PATCH REMOVAL 1 EA PATCH TD ONE (11:56)
[2018-11-20] MEDS ORDERED: BISACODYL 10 MG SUPP PR PRN (12:06)
[2018-11-20] MEDS ORDERED: MAGNESIUM HYDROXIDE 30 ML UDCUP PO PRN (12:06)
[2018-11-20] MEDS ORDERED: ONDANSETRON 4 MG/2 ML VIAL IVP PRN (12:06)
[2018-11-20] MEDS ORDERED: LACTULOSE 20 GM/30 ML UDCUP PO PRN (12:06)
[2018-11-20] MEDS ORDERED: DIAZEPAM 5 MG TAB PO PRN (12:18)
--- NOTE | 2018-11-20 12:22 | SOAPPROG ---
SOAP Progress Note Assessment/Plan: POST OP CHECK: Assessment: Doing well after L4-S1 TLIF Plan: HOB Flat overnight due to pinhole CSF leak from Intrathecal narcotic injection NO suction to RACHELLE CPM in PACU transfer to floor per protocol 11/20/18 12:20 Subjective: Awake, comfortable. Conversant. Objective: Vital Signs Temp Pulse Resp BP Pulse Ox 37.1 C 75 17 120/65 95 11/20/18 07:06 11/20/18 07:06 11/20/18 07:06 11/20/18 07:06 11/20/18 07:06 Laboratory Results 11/18/18 11:00 11/18/18 11:00 11/19/18 11/20/18 11/21/18 05:59 05:59 05:59 Intake Total 775 1096 Output Total 400 Balance 775 696 VItals: HR:85 BP: 108/66 O2: 100%j face mask Neuro: CRAMER, sens +LT FC x 4 ICD10 Worksheet Patient Problems: Problems Problem Status Onset Lumbar radiculopathy Acute Bipolar disorder Active Hypothyroidism Active Menorrhagia Acute Status post laparoscopic hysterectomy Acute
--- NOTE | 2018-11-20 12:23 | POSTOPPROG ---
Post Op Note Date of Operation: 11/20/18 Surgeon: Bill Avendano Chief Of Anesthesiology: Bill Avendano PAC Anesthesiologist: Ayana Anesthesia: GET(General Endotracheal) Pre-op Diagnosis: L4-S1 DJD Post-op Diagnosis: Same Indication: Low back and left leg pain/weakness Procedure: L4-S1 TLIF Findings: Severe DJD, spinal stenosis Inf/Abcess present in the surg proc area at time of surgery?: No EBL: 100-500 Complications: Pinhole CSF leaf from placement of IT narcotics. NO durotomy Drains: Pete Harmon (NO SUCTION TO RACHELLE) Specimen(s): None
--- NOTE | 2018-11-20 13:03 | GOP ---
[f rep st] OPERATIVE REPORT DATE OF OPERATION: 11/20/2018 SURGEON: Roe Rehman MD NEUROSURGEON: Roe Rehman MD DIVIDEND DEPOSIT ENTRY CLERK: SUSIE Jones ANESTHESIA: General endotracheal. PREOPERATIVE DIAGNOSIS: Severe multilevel lumbar degenerative joint disease with critical lateral recess, foraminal impingement, degenerative joint disease , and disk space collapse. Intractable back pain and left lower extremity radicular symptoms. Failed conservative care. Obesity. POSTOPERATIVE DIAGNOSIS: Severe multilevel lumbar degenerative joint disease with critical lateral recess, foraminal impingement, degenerative joint disease , and disk space collapse. Intractable back pain and left lower extremity radicular symptoms. Failed conservative care. Obesity. PROCEDURE PERFORMED: Mini open exposure for left-sided L4-5 and L5-S1 far lateral transpedicular decompression with L4 through S1 posterior segmental ( pedicle screw and Axle device) fixation and posterolateral fusion with local autograft and bone morphogenic protein. L4-5 and L5-S1 posterior/transforaminal lumbar interbody fusion with 2 structural polyetheretherketone interbody spacers , local autograft and bone morphogenic protein at each level. Use of intraoperative microscopy fluoroscopy and computer volumetric stereotactic navigation with intraoperative neurophysiologic testing. Injection of intrathecal narcotic analgesics and subcutaneous and intramuscular local anesthesia for postoperative pain control. FINDINGS: ESTIMATED BLOOD LOSS: 100 cc. INDICATIONS: The patient is a 48-year-old woman with intractable low back pain and left lower extremity radicular symptoms, secondary to severe multilevel degenerative joint disease at the L4-5 and L5-S1 levels with severe lateral recess and foraminal impingement and disk space collapse. She has failed extensive conservative care and presents now for surgical decompression and stabilization. DESCRIPTION OF PROCEDURE: After informed consent was obtained, the patient was taken to the operating room and placed in the prone position on the Pete table. The lumbosacral area was prepped and draped in a sterile fashion. After fluoroscopic localization of correct levels, the subcutaneous and intramuscular tissues were infiltrated with local anesthesia. A midline linear incision was then created over the L4 to S1 spinous processes. This was carried down the fascial layer, which was incised using monopolar electrocautery and carried in a subperiosteal plane along the spinous processes and lamina bilaterally. Intraoperative fluoroscopy was again utilized to verify the correct levels. Following this, the dissection was carried out over the facet joints. The microscope was then brought in and the left-sided far lateral transpedicular decompressions were performed with complete unroofing of the facet joints and neural foramina at L4-5 and L5-S1. The [employer] neuronavigational system was then brought in and using computer volumetric stereotactic navigation, pedicle screws were placed at L4, L5, and S1 on the left and at L4 and S1 on the right. Serial distraction was created first across the L5-S1 disk space, and then L4-5 disk space; during which time, a complete diskectomy was performed at each level with preparation of the endplates and placement of 2 structural PEEK interbody spacers, local autograft , and bone morphogenic protein at each level for an L4-5 and L5-S1 posterior/ transforaminal lumbar interbody fusion. Following this, the screw and marie system were then placed in a slight amount of compression in order to facilitate bony union and to minimize the potential for posterior graft migration. The right-sided L5 screw was left out in order to maximize the bony surface area for the posterolateral fusion, instead put Axle devices at L4-5 and L5-S1, which was also performed in standard fashion. The remaining lamina and facet joints were then extensively decorticated and the residual local autograft, along with bone morphogenic protein was placed out laterally for posterolateral fusion from L4-S1. 200 mcg of Duramorph, along with 50 mcg of fentanyl were then injected intrathecally for postoperative pain control. There was a slight amount of CSF visualized leaking from where I injected the Duramorph, so a piece of DuraGen was placed over this, followed by a piece of Gelfoam over that, and no further leaking was observed. A drain was then placed. The subcutaneous and intramuscular tissues were re-infiltrated with local anesthesia and the wound was closed in layered fashion using interrupted Vicryl sutures, followed by Steri-Strips on the skin after re-verification of good positioning of all of the screws rods and interbody spacers, and interspinous process clamps using biplanar fluoroscopy. Note that one of the L4-5 PEEK grafts slightly anterior, but some of it was still in the disk space and was not that concerning. In addition, 1 of the L4 screws was close to the endplate , but after looking at multiple angles, it appeared to be in good position and I felt that it was definitely in the patient's best interest to leave it in place and not try to take it out and placed another one, which would be much weaker, especially given the patient's size. COMPLICATIONS: None. DISPOSITION: The patient is currently in the process of being repositioned for extubation. /[id number]/MODL MTDD
--- NOTE | 2018-11-20 13:10 | POSTANESTH ---
Post Anesthetic Evaluation Cardiovascular Status: Normal, Stable Respiratory Status: Normal, Stable Level of Consciousness/Mental Status: Can Participate in Eval, Alert and Oriented Pain Control: Adequate, Prn Tx Ordered Nausea/Vomiting Control: Adequate, Prn Tx Ordered Complications Possibly Related to Anesthesia: None Noted (moving bilaterallower extremities)
[2018-11-20] MEDS: GABAPENTIN 300 MG CAP PO SCH ×2 (13:53→23:45)
[2018-11-20] MEDS: NS 1,000 ML IV SCH (13:57)
[2018-11-20] MEDS: CEFUROXIME 1,500 MG in NS 50 ML IV SCH ×2 (15:34→23:46)
[2018-11-20] MEDS: POLYETHYLENE GLYCOL 3350 17 GM PKT PO SCH ×2 (15:40→23:45)
[2018-11-20] MEDS: ONDANSETRON DISINTEGRATING 4 MG TAB PO PRN (20:48)
[2018-11-20] MEDS: PROMETHAZINE HCL 25 MG/ML INJ IV PRN (22:27)
[2018-11-20] MEDS: SENNOSIDES/DOCUSATE SODIUM TAB PO SCH (22:41)
[2018-11-20] MEDS: LIOTHYRONINE SODIUM 25 MCG TAB PO SCH (22:41)
[2018-11-20] MEDS: FAMOTIDINE 20 MG TAB PO SCH (22:41)
[2018-11-20] MEDS: LEVOTHYROXINE 100 MCG TAB PO SCH (22:41)
[2018-11-21] MEDS: NS 1,000 ML IV SCH (04:27)
[2018-11-21 05:46] LABS: PLATELET COUNT 233 10^3/uL (150-400)
[2018-11-21] MEDS: GABAPENTIN 300 MG CAP PO SCH ×3 (06:25→23:32)
[2018-11-21] MEDS: POLYETHYLENE GLYCOL 3350 17 GM PKT PO SCH ×2 (09:26→16:17)
[2018-11-21] MEDS: ACETAMINOPHEN 325 MG TAB PO PRN ×3 (09:27→23:32)
[2018-11-21] MEDS: ENOXAPARIN 40 MG/0.4 ML SYR SC SCH (09:27)
[2018-11-21] MEDS: SENNOSIDES/DOCUSATE SODIUM TAB PO SCH (09:28)
[2018-11-21] MEDS: LITHIUM CARBONATE 600 MG CAP PO SCH ×2 (09:28→10:59)
[2018-11-21] MEDS: FAMOTIDINE 20 MG TAB PO SCH (09:28)
[2018-11-21] MEDS ORDERED: traMADol 50 MG TAB PO PRN (09:35)
--- NOTE | 2018-11-21 11:21 | NEUSURGPN ---
Assessment/Plan: Assessment: 48 yo female POD #1 sp L4-S1 TLIF Doing well after L4-S1 TLIF. Pain well controlled and much improved leg pain. Plan: HOB Flat overnight due to pinhole CSF leak from Intrathecal narcotic injection but ok to raise HOB up today and if no positional headache may get up and OOB and start PT/OT today NO suction to RACHELLE- continue today Optimize pain management- sensitive to narcs, ok for tylenol,robaxin, and if needed can try Tramadol. Did speak with pharmacist to make sure this was ok with lithium as she does not tolerate other stronger opioids. PT/OT Postop xrays when able RN to call [employer] Operator for brace - LSO to be worn when up and OOB Dispo-pending therapy evals,pain Discussed with Dr. Arzate Subjective: Awake, comfortable. Conversant. Leg pain much improved. Back pain tolerable but Intrathecal narcs starting to wear off. Still very nauseated with any opioids with food in stomach. Denies headache with increase in HOB. Still has numbness in left leg as was preop. - Physician Discussed Patient with DrTennille: Ori Neurosurgery Physical Exam - Vitals, I&O, Labs I and O 11/20/18 11/21/18 11/22/18 05:59 05:59 05:59 Intake Total 1096 2350 700 Output Total 400 1035 Balance 696 1315 700 Weight 89.811 kg Intake: Oral (ml) 300 1450 240 IV Intake (ml) 900 460 IV Infused (ml) 796 NS W/ 20 KCl/L 1,000 ml @ 796 75 mls/hr IV CONT CHARLIE Rx #:[id number] Output: Urine (ml) 875 Catheter 650 Toilet 225 Estimated Blood Loss (ml) 150 Emesis (ml) 400 RACHELLE Drain Output (ml) 10 Back Pete Harmon 10 Other: Intake Quantity Yes Sufficient Number of Voids Toilet 1 1 Number of Emesis 1 Occurrences Vital Signs Temp Pulse Resp BP Pulse Ox 37.1 C 85 18 117/64 98 11/21/18 07:52 11/21/18 09:34 11/21/18 09:34 11/21/18 09:34 11/21/18 09:34 Laboratory Results 11/21/18 04:52 11/21/18 04:52 ICD10 Worksheet Patient Problems: Problems Problem Status Onset Lumbar radiculopathy Acute Bipolar disorder Active Hypothyroidism Active Menorrhagia Acute Status post laparoscopic hysterectomy Acute
[2018-11-21] MEDS: LEVOTHYROXINE 100 MCG TAB PO SCH (20:57)
[2018-11-21] MEDS: LIOTHYRONINE SODIUM 25 MCG TAB PO SCH (20:57)
[2018-11-21] MEDS: PROMETHAZINE HCL 25 MG/ML INJ IV PRN (22:35)
[2018-11-22] MEDS: SENNOSIDES/DOCUSATE SODIUM TAB PO SCH ×3 (01:51→22:12)
[2018-11-22] MEDS: POLYETHYLENE GLYCOL 3350 17 GM PKT PO SCH ×4 (01:51→22:13)
[2018-11-22] MEDS: FAMOTIDINE 20 MG TAB PO SCH ×3 (01:51→22:12)
[2018-11-22] MEDS: ACETAMINOPHEN 325 MG TAB PO PRN ×2 (05:27→17:11)
[2018-11-22] MEDS: GABAPENTIN 300 MG CAP PO SCH ×3 (05:27→22:13)
[2018-11-22] MEDS: LITHIUM CARBONATE 600 MG CAP PO SCH (09:13)
[2018-11-22] MEDS: ENOXAPARIN 40 MG/0.4 ML SYR SC SCH (09:18)
[2018-11-22] MEDS ORDERED: PATCH REMOVAL 1 EA PATCH TD SCH (11:56)
--- NOTE | 2018-11-22 14:13 | ASMTCMCOM ---
CM Note CM Note Notes: Chart reviewed for discharge planning purposes/ Patient evaluated per PT and is cleared for home. CM to follow should other needs arise. Plan; Home independently when medically cleared for discharge. Date Signed: 11/22/2018 02:12 PM Electronically Signed By:Ignacia Wadsworth RN
--- NOTE | 2018-11-22 14:27 | NEUSURGPN ---
Assessment/Plan: Assessment: 48 yo female POD #2 sp L4-S1 TLIF Doing well after L4-S1 TLIF. Pain well controlled and much improved leg pain. Plan: Doing well. Had soem dizziness and nausea yesterday but improved this morning. Postop xrays today LSO when up and OOB NO suction to RACHELLE- continue today Optimize pain management- sensitive to narcs, ok for tylenol,robaxin, and if needed can try Tramadol. Did speak with pharmacist to make sure this was ok with lithium as she does not tolerate other stronger opioids. PT/OT Dispo-Pending work with therapy more today. HOpeful for home tomorrow Discussed with Dr. Arzate Subjective: Doing well. Nausea and dizziness improved. No headaches. Leg pain improved and still has some numbness. Voiding well. No BM yet. O: Awake, alert PERRL, EOMI CN II-XII grossly intact BLE 11/15= Incision c/d/i- dressed SILT RACHELLE X1 to no suction- minimal serosang in bulb - Physician Discussed Patient with Dr.: Ori Neurosurgery Physical Exam - Vitals, I&O, Labs I and O 11/21/18 11/22/18 11/23/18 05:59 05:59 05:59 Intake Total 2350 1950 Output Total 9885 657 1494 Balance 1315 1005 -1400 Weight 89.811 kg Intake: Oral (ml) 1450 1490 IV Intake (ml) 900 460 Output: Urine (ml) 384 183 5042 Bedpan 125 Catheter 650 750 Toilet 225 1400 Estimated Blood Loss (ml) 150 RACHELLE Drain Output (ml) 10 70 Back Pete Harmon 10 70 Other: Intake Quantity Yes Sufficient Number of Voids Bedpan 1 Toilet 1 1 Number of Stools Toilet 1 Vital Signs Temp Pulse Resp BP Pulse Ox 37.0 C 83 14 116/73 97 11/22/18 11:28 11/22/18 11:28 11/22/18 11:28 11/22/18 11:28 11/22/18 11:28 Laboratory Results 11/21/18 04:52 11/21/18 04:52 ICD10 Worksheet Patient Problems: Problems Problem Status Onset Lumbar radiculopathy Acute Bipolar disorder Active Hypothyroidism Active Menorrhagia Acute Status post laparoscopic hysterectomy Acute
[2018-11-22] MEDS: ONDANSETRON DISINTEGRATING 4 MG TAB PO PRN (19:40)
[2018-11-22] MEDS: LIOTHYRONINE SODIUM 25 MCG TAB PO SCH (22:09)
[2018-11-22] MEDS: LEVOTHYROXINE 100 MCG TAB PO SCH (22:09)
[2018-11-23] MEDS: ACETAMINOPHEN 325 MG TAB PO PRN (05:22)
[2018-11-23] MEDS: GABAPENTIN 300 MG CAP PO SCH ×2 (05:36→15:00)
[2018-11-23 08:08] LABS: CREATINE KINASE 193 IU/L (0-156)
--- NOTE | 2018-11-23 08:13 | NEUSURGPN ---
Date of Surgery: 11/20/18 Post Op Day: 3 Assessment/Plan: Assessment: 48 yo female POD #3 sp L4-S1 TLIF Doing well in regards to lumbar after L4-S1 TLIF. Plan: -New onset chest pain this am without shortness of breath. Troponin, CKMB, Ddimer, CXR, EKG ordered and Hospitalist consulted. -Postop xrays show stable hardware placement -LSO when up and OOB -NO suction to RACHELLE- continue today -Optimize pain management- sensitive to narcs, ok for tylenol,robaxin, and if needed can try Tramadol. Did speak with pharmacist to make sure this was ok with lithium as she does not tolerate other stronger opioids. -PT/OT -Dispo-Pending work with therapy and results for chest pain testing -Discussed with Dr. Arzate Subjective: Chest pain, no shortness of breath Objective: AxO x4 MAEx4 5/5 BLE Dressing/Incision CDI RACHELLE patent, not to suction Neuro Check Frequency: per routine Urinary Catheter in Place: No - Physician Discussed Patient with DrTennille: Ori Neurosurgery Physical Exam - Vitals, I&O, Labs I and O 11/22/18 11/23/18 11/24/18 05:59 05:59 05:59 Intake Total 1950 700 Output Total 945 2500 Balance 1005 -1800 Intake: Oral (ml) 1490 700 IV Intake (ml) 460 Output: Urine (ml) 875 2450 Bedpan 125 Catheter 750 Toilet 2450 RACHELLE Drain Output (ml) 70 50 Back Pete Harmon 70 50 Other: Intake Quantity Yes Sufficient Number of Voids Bedpan 1 Toilet 3 Number of Stools Toilet 1 Vital Signs Temp Pulse Resp BP Pulse Ox 36.9 C 86 18 103/52 L 93 11/23/18 04:00 11/23/18 04:00 11/23/18 04:00 11/23/18 04:00 11/23/18 04:00 Laboratory Results 11/21/18 04:52 11/21/18 04:52 ICD10 Worksheet Patient Problems: Problems Problem Status Onset Lumbar radiculopathy Acute Bipolar disorder Active Hypothyroidism Active Menorrhagia Acute Status post laparoscopic hysterectomy Acute
--- NOTE | 2018-11-23 09:44 | PDHOSCONS ---
History and Physical - Chief Complaint chest pain, + d-dimer - History of Present Illness 48yo F with hypothyroidism, bipolar disorder presented on 11/18 with low back pain with left leg radicular symptoms and weakness. Recent imaging showed new disk herniation of lumbosacral spine. She was admitted to the neurosurgery team and underwent L4-5 and L5-S1 fusion on 11/[address] Rehman. She had a small CSF leak related to intrathecal narcotic injection but otherwise her post- operative course was uncomplicated until she developed chest pain this morning. Evaluation thus far reveals a positive d-dimer at 2.42, negative troponin, grossly normal CXR with the exception of mild left basilar atelectasis. ECG is pending. Medicine has been consulted for evaluation of her chest pain and positive d-dimer. Regarding her chest pain, this began around 7am this morning. Substernal, non- radiating. No associated diaphoresis. She has been intermittently nauseated since surgery. No shortness of breath. Her chest discomfort resolved after eating some food and has not recurred. History Information - Allergies/Home Medication List Allergies/Adverse Reactions: chlorpromazine HCl [From Thorazine] Allergy (Verified 11/18/18 11:37) Other-Enter Comments diphenhydramine HCl [From Benadryl] Allergy (Verified 11/18/18 11:37) Other-Enter Comments haloperidol [From Haldol] Allergy (Verified 11/18/18 11:37) Other-Enter Comments STEROIDS Allergy (Uncoded 11/18/18 11:37) Other-Enter Comments Home Medications: Herbals/Supplements -Info Only 1 ea PO DAILY 08/28/16 [Last Taken 09/10/16] Liothyronine Sodium [Cytomel 25 mcg (*)] 12.5 mcg PO HS 08/28/16 [Last Taken 03/01 01:00] Kindred Carbonate [Kindred Carbonate Cap 300 mg (*)] 600 mg PO DAILY 08/28/16 [ Last Taken 09/17/16] Acetaminophen [Tylenol ES 500 mg (*)] 1,000 mg PO Q8HRS 11/18/18 [Last Taken Unknown] Ibuprofen [Motrin (*)] 800 mg PO Q8HRS 11/18/18 [Last Taken Unknown] Levothyroxine [Synthroid 100 mcg (*)] 100 mcg PO HS 11/18/18 [Last Taken 01:00] I have personally reviewed and updated: family history, medical history, social history, surgical history - Past Medical History Additional medical history: Graves disease s/p radioiodine ablation with resultant hypothyroidism, bipolar disorder, chronic low back pain - Surgical History Additional surgical history: L4-5 and L5-S1 spinal fusion - Family History Additional family history: No family history of DVT/PE - Social History Smoking Status: Never smoked Alcohol Use: None Drug Use: None Review of Systems Review of Systems: ROS: 10pt was reviewed & negative except for what was stated in HPI & below Physical Exam Physical Exam: Temp Pulse Resp BP Pulse Ox 36.6 C 72 14 119/89 H 95 11/23/18 08:00 11/23/18 08:00 11/23/18 08:00 11/23/18 08:00 11/23/18 08:00 O2 (L/minute) 2 Constitutional: no apparent distress, appears nourished, not in pain Eyes: PERRL, anicteric sclera, EOMI Ears, Nose, Mouth, Throat: moist mucous membranes, hearing normal, ears appear normal, no oral mucosal ulcers Cardiovascular: regular rate and rhythym, no murmur, rub, or gallop, No edema Respiratory: no respiratory distress, no rales or rhonchi, clear to auscultation Gastrointestinal: normoactive bowel sounds, soft, non-tender abdomen, no palpable masses Genitourinary: no bladder fullness Skin: warm, normal color, no rashes or abrasions, no fluctuance, no induration, No mottled Musculoskeletal: full muscle strength, no muscle tenderness, normal joint ROM, no joint effusions Neurologic: AAOx3 Psychiatric: interacting appropriately, not anxious, not encephalopathic, thought process linear Lab Data & Imaging Review 11/21/18 04:52 11/21/18 04:52 WBC 12.96 10^3/uL (3.80-9.50) H 11/21/18 04:52 RBC 4.17 10^6/uL (4.18-5.33) L 11/21/18 04:52 Hgb 13.0 g/dL (12.6-16.3) 11/21/18 04:52 POC Hgb 16.0 gm/dL (12.6-16.3) 11/20/18 07:05 Hct 39.9 % (38.0-47.0) 11/21/18 04:52 POC Hct 47 % (38-47) 11/20/18 07:05 MCV 95.7 fL (81.5-99.8) 11/21/18 04:52 MCH 31.2 pg (27.9-34.1) 11/21/18 04:52 MCHC 32.6 g/dL (32.4-36.7) 11/21/18 04:52 RDW 12.9 % (11.5-15.2) 11/21/18 04:52 Plt Count 233 10^3/uL (150-400) 11/21/18 04:52 MPV 9.6 fL (8.7-11.7) 11/21/18 04:52 Neut % (Auto) 75.4 % (39.3-74.2) H 11/21/18 04:52 Lymph % (Auto) 14.3 % (15.0-45.0) L 11/21/18 04:52 [place]morton % (Auto) 9.6 % (4.5-13.0) 11/21/18 04:52 Eos % (Auto) 0.1 % (0.6-7.6) L 11/21/18 04:52 Baso % (Auto) 0.2 % (0.3-1.7) L 11/21/18 04:52 Nucleat RBC Rel Count 0.0 % (0.0-0.2) 11/21/18 04:52 Absolute Neuts (auto) 9.79 10^3/uL (1.70-6.50) H 11/21/18 04:52 Absolute Lymphs (auto) 1.85 10^3/uL (1.00-3.00) 11/21/18 04:52 Absolute Monos (auto) 1.24 10^3/uL (0.30-0.80) H 11/21/18 04:52 Absolute Eos (auto) 0.01 10^3/uL (0.03-0.40) L 11/21/18 04:52 Absolute Basos (auto) 0.02 10^3/uL (0.02-0.10) 11/21/18 04:52 Absolute Nucleated RBC 0.00 10^3/uL (0-0.01) 11/21/18 04:52 Immature Gran % 0.4 % (0.0-1.1) 11/21/18 04:52 Immature Gran # 0.05 10^3/uL (0.00-0.10) 11/21/18 04:52 D-Dimer 2.42 ug/mLFEU (0.00-0.50) H 11/23/18 07:43 POC Sodium 143 mEq/L (135-145) 11/20/18 07:05 Sodium 140 mEq/L (135-145) 11/21/18 04:52 POC Potassium 3.8 mEq/L (3.3-5.0) 11/20/18 07:05 Potassium 3.7 mEq/L (3.5-5.2) 11/21/18 04:52 POC Chloride 107 mEq/L (97-110) 11/20/18 07:05 Chloride 105 mEq/L (97-110) 11/21/18 04:52 Carbon Dioxide 25 mEq/l (22-31) 11/21/18 04:52 POC Total CO2 24 mEq/L (22-31) 11/20/18 07:05 Anion Gap 10 mEq/L (6-14) 11/21/18 04:52 POC BUN 10 mg/dL (7-23) 11/20/18 07:05 BUN 14 mg/dL (7-23) 11/21/18 04:52 Creatinine 0.5 mg/dL (0.6-1.0) L 11/21/18 04:52 POC Creatinine 0.6 mg/dL (0.6-1.0) 11/20/18 07:05 Estimated GFR > 60 11/21/18 04:52 Glucose 81 mg/dL (70-100) 11/21/18 04:52 POC Glucose 94 mg/dL (70-100) 11/20/18 07:05 Calcium 8.6 mg/dL (8.5-10.4) 11/21/18 04:52 Creatine Kinase 193 IU/L (0-156) H 11/23/18 07:43 CK-MB (CK-2) Fraction 0.51 ng/mL (0.00-4.55) 11/23/18 07:43 CK-MB (CK-2) % 0.3 % (0.0-4.0) 11/23/18 07:43 Creatine Kinase Interp NEGATIVE (NEGATIVE) 11/23/18 07:43 Troponin I < 0.012 ng/mL (0.000-0.034) 11/23/18 07:43 Specimen Hemolysis 281 11/18/18 11:00 Interpretation: CXR: left basilar atelectasis, no infiltrate or effusion, normal heart size (reviewed, interpreted by me) EKG additional interpertation: ECG: NSR, normal axis and intervals, no ST-T segment ischemic changes, no right heart strain Assessment & Plan Assessment: 48yo F with hypothyroidism, bipolar disorder presented on 11/18 with low back pain with left leg radicular symptoms. Underwent L4-5/L5-S1 fusion on 11/20. Developed chest pain today for which we have been consulted. Plan: #Chest pain, elevated d-dimer: Given her recent surgery, she is certainly at elevated risk for DVT/PE (although she has had appropriate prophylaxis) and warrants further investigation. - CTA chest obtained, negative for PE or aortic pathology - Troponin/ecg negative for coronary ischemia - Symptoms strongly suggest GI etiology. Recommend trying [id number] H2 alberto or PPI if recurrent issue but would not prescribe at discharge #History of Graves disease s/p radioiodine ablation with resultant hypothyroidism: Administration of iodinated contrast can precipitate thyroid storm in patient's with Graves disease, however, she has undergone radioiodine ablation which mitigates this risk. Would continue current levothyroxine dose. #Bipolar disorder: Continue lithium. #Lumbosacral disk herniation with resultant radiculopathy s/p fusion: Management per neurosurgery. Ok to discharge from our stand point. Thank you for this consult.
[2018-11-23] MEDS: SCOPOLAMINE HYDROBROMIDE 1 MG/3 DAYS PATCH TD SCH (09:57)
[2018-11-23] MEDS: ENOXAPARIN 40 MG/0.4 ML SYR SC SCH (09:58)
[2018-11-23] MEDS: FAMOTIDINE 20 MG TAB PO SCH (09:58)
[2018-11-23] MEDS: POLYETHYLENE GLYCOL 3350 17 GM PKT PO SCH (10:01)
[2018-11-23] MEDS: SENNOSIDES/DOCUSATE SODIUM TAB PO SCH (10:02)
[2018-11-23] MEDS ORDERED: PATCH REMOVAL 1 EA PATCH TD SCH (10:31)
[2018-11-23] MEDS ORDERED: IOPAMIDOL (ISOVUE 370) 100 ML BTL IV ONE (10:49)
[2018-11-23] MEDS: LITHIUM CARBONATE 600 MG CAP PO SCH (11:42)
[2018-11-23 11:43] VITALS: BP 114/57
--- NOTE | 2018-11-23 15:57 | ASMTLACE ---
RIAN Length of stay for Answers: 4-6 days current admission Acuity / Level of Answers: Yes Care: Did the patient have an inpatient admission? Comorbidities - select Answers: Opioid dependence all that apply / Chronic pain Other Notes: Graves disease; Hypothyroid # of Emergency department Answers: 1-2 visits in the last 6 months Social determinants Answers: Mental health diagnosis (anxiety, depression, pers onality disorders, etc.) Score: 16 Date Signed: 11/23/2018 03:56 PM Electronically Signed By:Ignacia Wdasworth RN
--- NOTE | 2018-11-23 16:01 | ASMTDCNOTE ---
Case Management Discharge Discharge Order Complete? Answers: Yes Patient to Obtain Answers: via Family Medications Transportation Arranged Answers: Family/Friends Family Notified Answers: Yes Discharge Comments Notes: Patient medically cleared for independent dc to home with outpatient therapy, no other needs identified at this time. CM available should needs arise. Date Signed: 11/23/2018 03:59 PM Electronically Signed By:Ignacia Wadsworth RN
--- NOTE | 2018-11-24 13:12 | CPEKG ---
Test Reason : Blood Pressure : / mmHG Vent. Rate : 072 BPM Atrial Rate : 071 BPM P-R Int : 140 ms QRS Dur : 091 ms QT Int : 421 ms P-R-T Axes : 049 -22 007 degrees QTc Int : 461 ms Sinus rhythm Borderline left axis deviation Confirmed by Bay Aguilar ([id number]) on 11/24/2018 1:11:53 PM Referred By: FRANCINE ANGULO Confirmed By:Bay Aguilar
== END 2018-11-23 16:31 | disposition home or self-care (01) | DRG 460 ==
LOC: F3N 13:09
PROVIDERS: ADMIT Neurological Surgery; ATTEND Neurological Surgery
DX: M51.17 Intervertebral disc disorders with radiculopathy, lumbosacral region (principal); M51.16 Intervertebral disc disorders with radiculopathy, lumbar region; M48.56XA Collapsed vertebra, not elsewhere classified, lumbar region, initial encounter for fracture; M48.57XA Collapsed vertebra, not elsewhere classified, lumbosacral region, initial encounter for fracture; R07.9 Chest pain, unspecified; E03.9 Hypothyroidism, unspecified; F31.9 Bipolar disorder, unspecified; Z92.3 Personal history of irradiation
CPT/HCPCS: 82435-PO; 82565-PO; 82947-PO; 84132-PO; 84295-PO; 84520-PO; 85014-ER; 96374; 97116-GP; 97162-GP; 97166-GO; 97530-GO; 97530-GP; 97535-GO; C1713; J0697; J1100; J1170; J1650; J2001; J2250; J2270; J2274; J2405; J2550; J2704; J2765; J3010; Q9967